=== PATIENT | male | born 1945 | race Caucasian/White ===

== ENCOUNTER 2024-10-04 02:06 | Outpatient (CLI) | payer MEDICARE, BC, SELFPAY ==
--- NOTE | 2024-10-04 13:30 | DI.US_ITS ---
APPROVED REPORT EXAM: Comprehensive 2D, Doppler, and color-flow Echocardiogram Patient Location: Out-Patient Commissioner Of Officials: Lynne Delgado RDCS (AE) Indications: Evaluate cardiac function, post CABG, CHF Other Information Study Quality: Fair. Technically limited study due to body habitus. Conclusion Normal left ventricular chamber size and wall thickness. Ejection fraction is 55%. Wall motion is n ormal Normal right ventricular size and function Left atrium is severely enlarged. Right atrial size is normal Aortic valve is trileaflet and sclerotic. There is no significant aortic stenosis, mean gradient is 9 mmHg. There is no aortic regurgitation Normal mitral valve with mild to moderate regurgitation Estimated right ventricular systolic pressure is 26 mmHg Ascending aorta measures 3.52 cm Wall motion Left Ventricle The left ventricle is normal size. Left ventricular systolic function is mild to moderately decreas ed. The left ventricular systolic function is normal. The left ventricular ejection fraction is withi n the normal range. There is normal left ventricular wall thickness. There is normal LV segmental wal l motion. There is no ventricular septal defect visualized. LVEF is 55%. Right Ventricle The right ventricle is normal size. Right ventricular systolic function is grossly normal. Atria Left atrium is severely dilated. The right atrium size is normal. The interatrial septum is intact wi th no evidence for an atrial septal defect. Aortic Valve The Aortic valve is sclerotic. Aortic valve is trileaflet. There is no aortic valvular stenosis. Mitral Valve The mitral valve is normal in structure. No evidence of mitral valve stenosis. Mild to moderate mitr al regurgitation. Tricuspid Valve The tricuspid valve is normal in structure. There is no tricuspid valve stenosis. Trace to mild tricu spid regurgitation. The RVSP is 25.9_ mmHg. Pulmonic Valve The pulmonary valve is normal in structure. There is no pulmonic valvular stenosis. Trace pulmonic re gurgitation. Great Vessels The aortic root is normal in size. The ascending aorta is mildly dilated. Aortic arch is not well vis ualized. IVC is normal in size and collapses >50% with inspiration. Pericardium There is no pericardial effusion. Technically limited subcostal imaging. 2D Dimensions IVSD d PLAX 1.14 cm M: 0.6-1.2 Ao Root d 3.38 cm M: 3.1 - 3.7 LVPW d PLAX 1.10 cm M: 0.6 - 1.2 Ao Asc Diam d 3.52 cm M: 2.6 - 3.4 LVID d PLAX 5.60 cm M: 4.2 - 5.8 LVDs 4.34 cm M: 2.5 - 4.0 LV EF Teichholz 44.3 % FS 22.21 % LV EDV (Teich) 152.2 mL LV ESV (Teich) 84.8 mL Auto EF LV EDV A4C 171.3 mL LV EDV A2C 137.5 mL LV EDV BP 158.6 mL LV ESV A4C 91.9 mL LV ESV A2C 75.2 mL LV ESV BP 85.0 mL LVEF(%) A4C 46.4 % LVEF(%) A2C 45.3 % LVEF(%) BP 46.4 % LV SV A4C 79.4 ml LV SV A2C 62.3 ml LV SV BP 73.6 ml LV CO A4C 4.6 L/min LV CO A2C 3.8 L/min LV CO BP 4.2 L/min HR A4C 58.25 BPM HR A2C 61.33 BPM LV EDV Index (BP) LA Volume LA Length A4C 6.4 cm LA Length A2C 6.7 cm LA Area A4C s 29.23 cm2 LA Area A2C s 33.02 cm2 LA Vol A4C A-L 113.02 mL LA Vol A2C A-L 137.19 mL LA Vol Biplane A-L 127.7 mL LA Vol/BSA A4C A-L LA Vol/BSA A2C A-L LA Vol/BSA BP A-L 59.1 mL/m2 LA Vol A4C MOD 102.5 mL LA Vol A2C MOD 128.3 mL LA Vol BP MOD 117.3 mL RA Volume RA Area A4C 18.2 cm2 RA ESV A4C (A-L) 42.1mL RA Vol/BSA A4C A-L RA Length A4C 6.7 cm RA ESV A4C (MOD) 40.8mL LV Diastology MV E' medial 0.085 (>0.07 m/s) MV E Vmax 0.83 (0.4-1.3 m/s) MV E/E' MED 9.72 (<14) MV A Vmax 0.75 (0.4-1.3 m/s) E/A Ratio 1.1 Aortic Valve AoV Vmax 1.89 m/s LVOT Vmax 1.03 m/s AoV Peak Grad 14.3 mmHg LVOT Peak Grad 4.2 mmHg AoV Area (Vmax) 1.77 cm2 LVOT VTI 0.230 m AoV VTI 0.444 m LVOT Mean Grad 2.2 mmHg AoV Mean Raul. 1.42 m/s LVOT SV 74.91 mL AoV Mean Grad 9.0 mmHg LVOT Diam s 2.00 cm AoV Area (VTI) 1.69 cm2 AV Regurg Peak Gr. 14.31 mmHg Velocity Ratio 0.54 Mitral Valve MV DT 362 (160-240 msec) MV Vmax TIPS 0.85 m/s MV Mean Grad 1.2 (<2mmHg) MV VTI 0.310 m Pulmonary Valve PV Vmax 1.12 (0.5-1.5 m/s) RVOT Vmax 0.64 m/s PV Peak Grad 5.0 mmHg RVOT Peak Gr. 1.6 mmHg PV Mean Raul 0.81 m/s RVOT VTI 0.154 m PV Mean Grad 2.8 mmHg RVOT Mean Gr. 0.9 mmHg Tricuspid Valve RA Pressure 3.00 mmHg TR Vmax 2.39 m/s TV S' 0.18 m/s TR Peak Grad 22.8 mmHg RVSP (TR) 25.9 mmHg
== END 2024-10-04 02:26 ==
PROVIDERS: PCP Family Medicine; Visit Provider Family Medicine
DX: I35.0 Nonrheumatic aortic (valve) stenosis (principal); I34.0 Nonrheumatic mitral (valve) insufficiency
CPT/HCPCS: 93306